=== PATIENT | male | born 1965 | race Caucasian/White ===

== ENCOUNTER 2017-01-01 12:52 | Emergency (ER) | payer OTHER ==
[~2017-01-01] VITALS: Ht 157.5 cm; Wt 56.4 kg
[~2017-01-01 12:52] MED LIST: CEFDINIR300 M1 PO; DEPAKOTE ER500 MG PO; INDERAL PO; LOMOTIL TABLET1 EACH PO; PROMETHAZINE HC25 M1 PO; TEGRETOL-XR,CA400 MG PO; TEGRETOL100 MG PO; ZONEGRAN100 MG PO
[2017-01-01 14:43] VITALS: BP 137/92
== END 2017-01-01 14:46 | disposition home or self-care (01) ==
LOC: EME 12:52
PROC: 3E0234Z Introduction of Serum, Toxoid and Vaccine into Muscle, Percutaneous Approach (ICD-10-PCS; principal; 2017-01-01)
DX: S09.90XA Unspecified injury of head, initial encounter (principal); S00.01XA Abrasion of scalp, initial encounter; Z23 Encounter for immunization; W17.89XA Other fall from one level to another, initial encounter; G81.94 Hemiplegia, unspecified affecting left nondominant side; H91.92 Unspecified hearing loss, left ear
CPT/HCPCS: 70450; 99281; 99284